=== PATIENT | male | born 1970 | race Caucasian/White ===

== ENCOUNTER 2021-04-04 12:56 | Emergency (ER) | payer SELFPAY ==
[~2021-04-04] VITALS: Ht 165.1 cm; Wt 77.1 kg
--- NOTE | 2021-04-04 12:56 | NUR ---
PT BIBRA 62 FROM 05/28 C/O BEHAVIORAL "HE'S BEEN SCREAMING AND STATING HEARING VOICES" PT IS AAOX4, NOT IN RESPIRATORY DISTRESS, V/S STABLE, KEPT RESTED AND COMFORTABLE. WILL CONTINUE TO MONITOR.
--- NOTE | 2021-04-04 13:12 | NUR ---
SEEN AND EXAMINED BY .
[2021-04-04 13:30] LABS: BASOPHILS % (AUTO) 0.4 % (0.0-2.0); EOSINOPHILS % (AUTO) 1.1 % (0.0-6.0); HEMATOCRIT 41 % (39-51); HEMOGLOBIN 13.9 g/dL (13.5-17.5); LYMPHOCYTES # (AUTO) 2.8 /CMM (0.8-4.8); MEAN CORPUSCULAR HGB CONC 34 g/dl (31.0-36.0); MEAN CORPUSCULAR VOLUME 94 fL (80-96); MONOCYTES # (AUTO) 0.5 /CMM (0.1-1.30); MONOCYTES % (AUTO) 5.9 % (2.0-12.0); NEUTROPHILS # (AUTO) 5.6 /CMM (1.8-8.9); NEUTROPHILS % (AUTO) 61.6 % (43.0-81.0); PLATELET COUNT (AUTO) 251 /CMM (150-450); RED BLOOD CELL COUNT(AUTO) 4.36 MIL/uL (4.5-6.0)
[2021-04-04 13:37] LABS: CALCIUM, SERUM 8.4 mg/dL (8.5-10.1); CARBON DIOXIDE 24 mmol/L (21-32); CHLORIDE 103 mmol/L (98-107); GLUCOSE 186 mg/dL (74-106); POTASSIUM 3.8 mmol/L (3.5-5.1); SODIUM SERUM 136 mmol/L (136-145); UREA NITROGEN, BLOOD 19 mg/dL (7-18)
--- NOTE | 2021-04-04 13:40 | NUR ---
[employer] OFFICER AT BEDSIDE.
[2021-04-04 13:50] LABS: ALANINE AMINOTRANSFERASE 80 U/L (12-78); ALBUMIN 3.5 g/dL (3.4-5.0); ALCOHOL, BLOOD < 3 mg/dL (0-0); ALKALINE PHOSPHATASE 101 U/L (46-116); ASPARTATE AMINOTRANSFERASE 51 U/L (15-37); BILIRUBIN,DIRECT 0.1 mg/dL (0.0-0.2); BILIRUBIN,TOTAL 0.3 mg/dL (0.2-1.0); TOTAL PROTEIN, SERUM 7.4 g/dL (6.4-8.2)
--- NOTE | 2021-04-04 13:50 | NUR ---
UNIT# [id number] OFFICERS TARA AND DENICE. INTERVIEWED THE PATIENT.
[2021-04-04 14:18] LABS: BILIRUBIN,URINE Negative (NEGATIVE); COLOR,URINE YELLOW (YELLOW); LEUKOCYTE ESTERASE ,URINE Negative (NEGATIVE); NITRITE, URINE Negative (NEGATIVE); PH,URINE 6.5 (5.0-8.0); PROTEIN,URINE Trace mg/dl (NEGATIVE); UGLUCOSE 500 MG/DL mg/dL (NEGATIVE); UROBILINOGEN,URINE 0.2 EU/dL (0.2)
[2021-04-04] MEDS ORDERED: OLANZAPINE 10 MG VIAL IM ONE ×2 (14:19→14:30)
[2021-04-04 14:28] LABS: BACTERIA,URINE None seen /HPF (None Seen); RBC,URINE 0-2 /HPF (0-2); SQUAMOUS EPITHELIAL CELL,UR Few /HPF (None Seen)
[2021-04-04 14:29] LABS: MUCUS,URINE Few /LPF (None Seen); URINE AMORPHOUS URATE Few /HPF (None Seen)
--- NOTE | 2021-04-04 15:00 | NUR ---
COVID SWAB DONE AND SENT TO THE LAB
--- NOTE | 2021-04-04 16:32 | NUR ---
"SS Consult: SS Consult requested for homelessness & behavioral. The pt. is a 51 year old male. BORIS met with pt. bedside. However, pt. is still drowsy as he was medicated at 1430 with Zyprexa. Pt. is not able to be interviewed at this time. BORIS placed homeless waiver & resources in the pt.'s chart and notified MD that nursing should follow up with homeless discharge if SW is unavailable. Addendum: 04/04/21 at 1636 by RADHA ESCALANTE BORIS placed the following resources in chart: Substance Abuse resources provided included: [facility] Substance Abuse Self-Helpline ([facility]) ; CRI -HELP [address] [facility] [place] 916t[address] ; [facility] [address] [facility] [address] ; [facility] Rehabilitation Program [address] [facility] [address] ; [facility] [address] [facility] [address] ; [facility] 7360 [facility] [address] ; [facility] 909 [facility] [address] ; [facility] Substance Abuse Helpline([facility] ; [facility] ; [facility] [place]; [facility] [place]; [facility] [place]; [facility] Marcos Baum; [facility] [place]; [facility]; [facility] Tar[facility]; [facility]. [facility]; Alcoholics Anonymous -SFV; Ly-Wirn-Uhqdxhw ; Marijuana Anonymous -SFV; Narcotics Anonymous www.na.org; Year-round shelters: [place] [facility] [address], [place] [id number] ; [facility] [place] [facility] [address] [place] [address]; [place] [facility] [id number] [facility] [address] Winter Shelters: [facility] Provider: [facility] [place] Address: [address] [facility] Hospital[facility] Rai, [address] # of Beds: 47 Population Served: [facility] 6 | [facility] Saumya Bakerhune [place] Provider: Home at Last Address: [address] [place] [address], [address] # of Beds: 66 Population Served: [facility]cent [place] Provider: First to Serve Address: [address] [facility], [address] # of Beds: 56 Population Served: [facility] Matthew DiegoGianni [place] Provider: SSG/[facility]. [facility] Address: [address] [facility], [address] # of Beds: 49 Population Served: [facility] 8 | [facility] Provider: First to Serve Address: [address] [facility], [address] # of Beds: 37 Population Served: [facility]: [facility]: [address] Ash[address]. [place] ; [facility] [address] [facility] ; [facility] [address] Javier Annie, [place] . Food Resources: [place] [facility] at [facility]- [address] [place]; Meet Each Need with Dignity ([facility]) [address] [facility] Center[facility]ianni [place]; [facility] 8419 [facility]; [facility] 3127 [facility]. Mental Health resources provided: [facility] [address] [place], [place] [address] ; [facility] [address] [facility] [address], [place], [place] [id number] ; [facility] [address] [place], [place] [id number] ; [facility] [address] [place], [place] [address] Healthcare Clinics: [facility] [address] [facility], [address] [place] ; [facility] [address] [facility] [address] [place] [address]; [facility] [place] [address] [facility]. [place] [phone]) [phone] Counseling--Outpatient [facility] [address] [facility], [address] [place], [place] [id number] (Specializes in in-depth psychotherapy for emotional distress: anxiety, depression, interpersonal conflicts, life transitions, childhood abuse) [facility] [address] [employer], [place] [phone] (Assist with solving problem marital difficulties, separation & divorce, aging parents, & grief, chronic & terminal illness) [facility] [address] [place] [address] (Deal with loss & grief, anxiety, marital difficulties) Homebound/Mental Health Services [address] [place] [address] (Provide in-home mental services to people who are incapable of leaving their homes) [facility] of the Elderly Senior Service/Resource Center [address] [address] [place], [place] [id number] [facility] [address] Elizabeth ValenciaGianni [facility] HospitalkevSAINT MICHAEL, [place] [phone] PSYCHIATRIC OUTPATIENT SERVICES [facility] Partial Hospitalization and Intensive Outpatient Program (Managed Care and [place] Only)[address] Jonathan Sethi. [facility] [phone] [facility] Partial Hospitalization and Outpatient [id number] [address] [place], [place] [phone] [facility] Partial Hospitalization and Outpatient [id number] [place], [place] [phone] [facility] [id number] [place] [phone] [facility] [place] Partial Hospitalization and Outpatient [id number] [facility] Marcos BaumSAINT [place], [phone] "
--- NOTE | 2021-04-05 00:36 | NUR ---
PT DENIES SI/HI. PT PASSED ROAD TEST DR. CASTRO AWARE. PT AOX4.
--- NOTE | 2021-04-05 00:40 | NUR ---
PT CLEARED FOR DISCHARGE PER DR. CASTRO. Patient given written and verbal discharge instructions. Patient verbalizes understanding of instructions. Patient is ambulatory with steady gait. Refuses offer of usp placement. Patient given list of available shelters in surrounding area.
[2021-04-05 00:43] VITALS: BP 138/78
== END 2021-04-05 00:43 | disposition home or self-care (01) ==
LOC: ER 12:56
DX: F29 Unspecified psychosis not due to a substance or known physiological condition (principal); Z20.822 Contact with and (suspected) exposure to COVID-19; Z86.59 Personal history of other mental and behavioral disorders
CPT/HCPCS: 36415; 80048; 80076; 80299; 80307; 80320; 81001; 85025; 87426; 96372; 99291; C9803; J3490; G0480

== ENCOUNTER 2021-04-05 01:48 | Emergency (ER) | payer SELFPAY ==
[~2021-04-05] VITALS: Ht 165.1 cm; Wt 77.1 kg
[2021-04-05 01:48] VITALS: BP 121/75
--- NOTE | 2021-04-05 01:55 | NUR ---
PT BIBRA FOR HEADACHE, SPEAKING IN FULL SENTENCES. PT AAOX4, VSS, RESPIRATIONS EVEN AND UNLABORED. PT WAS DC'ED AN HOUR AGO. PT CONNECTED TO THE MONITOR AND POX
[2021-04-05] MEDS ORDERED: ACETAMINOPHEN ES 500 MG TABLET ONE (02:30)
[2021-04-05] MEDS ORDERED: ACETAMINOPHEN 325 MG TABLET PO ONE (02:30)
--- NOTE | 2021-04-05 03:50 | NUR ---
pt requested to sit outside. risk and benefits explained x3. pt strongly refused. pt states he wants to sleep outside.
--- NOTE | 2021-04-05 04:13 | NUR ---
Patient eloped from facility. ER MD notified.
== END 2021-04-05 04:52 | disposition left against medical advice (07) ==
LOC: ER 01:50
DX: R51.9 Headache, unspecified (principal); F20.9 Schizophrenia, unspecified; F31.9 Bipolar disorder, unspecified

== ENCOUNTER → 2024-02-27 | Emergency (ER) | payer OTHER ==
[~2024-02-27] VITALS: Ht 160 cm; Wt 72.6 kg
[~2024-02-27] MED LIST: CIPROFLOXACIN HCL 500 MG TABLET ONE
[2024-02-27 17:05] LABS: BASOPHILS % (AUTO) 0.4 % (0.0-2.0); EOSINOPHILS # (AUTO) 0.1 K/uL (0.0-0.7); EOSINOPHILS % (AUTO) 1.2 % (0.0-6.0); HEMATOCRIT 47 % (39-51); HEMOGLOBIN 15.4 g/dL (13.5-17.5); LYMPHOCYTES # (AUTO) 3.8 K/uL (0.8-4.8); LYMPHOCYTES % (AUTO) 37.5 % (20.0-44.0); MEAN CORPUSCULAR HEMOGLOBIN 30 PG (26.0-33.0); MEAN CORPUSCULAR HGB CONC 33 g/dl (31.0-36.0); MEAN CORPUSCULAR VOLUME 91 fL (80-96); MONOCYTES # (AUTO) 0.6 K/uL (0.1-1.30); MONOCYTES % (AUTO) 5.8 % (2.0-12.0); NEUTROPHILS # (AUTO) 5.6 K/uL (1.8-8.9); NEUTROPHILS % (AUTO) 55.1 % (43.0-81.0); PLATELET COUNT (AUTO) 252 K/uL (150-450); RED BLOOD CELL COUNT(AUTO) 5.17 MIL/uL (4.5-6.0); RED CELL DISTRIBUTION WIDTH 14.2 % (11.5-15.0); WHITE BLOOD COUNT (AUTO) 10.2 K/uL (4.3-11.0)
[2024-02-27 17:40] LABS: ALANINE AMINOTRANSFERASE 44 U/L (12-78); ALBUMIN 3.3 g/dL (3.4-5.0); ALCOHOL, BLOOD < 3 mg/dL (0-10); ALKALINE PHOSPHATASE 88 U/L (46-116); ASPARTATE AMINOTRANSFERASE 30 U/L (15-37); BILIRUBIN,DIRECT 0.1 mg/dL (0.0-0.2); BILIRUBIN,TOTAL 0.5 mg/dL (0.2-1.0); CALCIUM, SERUM 8.8 mg/dL (8.5-10.1); CARBON DIOXIDE 23 mmol/L (21-32); CHLORIDE 99 mmol/L (98-107); CREATININE 0.9 mg/dL (0.6-1.3); GLUCOSE 268 mg/dL (74-106); POTASSIUM 3.6 mmol/L (3.5-5.1); SODIUM SERUM 131 mmol/L (136-145); TOTAL PROTEIN, SERUM 7.2 g/dL (6.4-8.2); UREA NITROGEN, BLOOD 7 mg/dL (7-18)
[2024-02-27 17:42] LABS: APPEARANCE,URINE Clear (CLEAR); BILIRUBIN,URINE Negative (NEGATIVE); BLOOD, URINE Negative Ery/uL (NEGATIVE); COLOR,URINE LIGHT YELLOW (YELLOW); KETONES,URINE Negative (NEGATIVE); LEUKOCYTE ESTERASE ,URINE Negative (NEGATIVE); NITRITE, URINE Negative (NEGATIVE); PROTEIN,URINE Trace mg/dl (NEGATIVE); UGLUCOSE 500 MG/DL mg/dL (NEGATIVE)
[2024-02-27 17:50] LABS: BARBITURATE, URINE NEGATIVE (NEGATIVE); BENZODIAZEPINE, URINE NEGATIVE (NEGATIVE); CANNABINOID, URINE NEGATIVE (NEGATIVE); COCCAINE, URINE NEGATIVE (NEGATIVE); OPIATE, URINE NEGATIVE (NEGATIVE); PHENCYCLIDINE SCREEN,URINE NEGATIVE (NEGATIVE)
[2024-02-27 17:53] LABS: AMPHETAMINE, URINE POSITIVE (NEGATIVE)
[2024-02-27 17:53] LABS: SALICYLATE 1.6 mg/dL (2.8-20.0)
[2024-02-27] MEDS: IV NS 0.9% 1,000 ML BAG IV ONE (18:02)
[2024-02-27 18:07] LABS: ACETAMINOPHEN 0 ug/ml (10-30)
[2024-02-27 18:23] LABS: ADD URINE CULTURE YES; BACTERIA,URINE Few /HPF (None Seen); RBC,URINE 0-2 /HPF (0-2); SQUAMOUS EPITHELIAL CELL,UR Few /HPF (None Seen); WBC,URINE 21-50 /HPF (0-3)
[2024-02-27] MEDS: CIPROFLOXACIN HCL 250 MG TABLET PO ONE (19:00)
[2024-02-28 08:51] VITALS: BP 144/89; TEMP 98.2; O2SAT 99
== END | disposition home or self-care (01) ==
LOC: ER 17:05
DX: S00.03XA Contusion of scalp, initial encounter (principal); F22 Delusional disorders; F29 Unspecified psychosis not due to a substance or known physiological condition; N39.0 Urinary tract infection, site not specified; E11.9 Type 2 diabetes mellitus without complications; E78.5 Hyperlipidemia, unspecified; F20.9 Schizophrenia, unspecified; F17.210 Nicotine dependence, cigarettes, uncomplicated; Z20.822 Contact with and (suspected) exposure to COVID-19; X83.8XXA Intentional self-harm by other specified means, initial encounter; Y93.89 Activity, other specified; Y92.89 Other specified places as the place of occurrence of the external cause; Y99.8 Other external cause status
CPT/HCPCS: 99284; 70450; 85025; 80048; 87086; 80076; 81001; 36415; 82962; 87426; 80143; 80320; 80307; A4223; G0480